=== PATIENT | male | born 1970 | race Caucasian/White ===

== ENCOUNTER 2018-12-13 19:04 | Emergency (ER) | payer MEDICAID, OTHER ==
[2018-12-13] MEDS: predniSONE 20 MG TAB PO (20:38)
[2018-12-13] MEDS: DIPHENHYDRAMINE 25 MG CAP PO (20:38)
[2018-12-13] MEDS: FAMOTIDINE 20 MG TAB PO (20:38)
== END 2018-12-13 21:31 | disposition home or self-care (01) ==
LOC: FTE 19:04
DX: R21 Rash and other nonspecific skin eruption (principal)
CPT/HCPCS: 99283; J7512